=== PATIENT | female | born 2000 | race Two or more races ===

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

== ENCOUNTER 2019-08-14 00:24 | Emergency (ER) | payer OTHER ==
[~2019-08-14] VITALS: Ht 160 cm; Wt 90.9 kg
[~2019-08-14 00:24] MED LIST changes: +PERM60CR12 TP
[2019-08-14 00:52] VITALS: BP 153/94
[2019-08-14] MEDS ORDERED: HYDR453. TP (01:17)
[2019-08-14] MEDS ORDERED: ONDA4TAB12 PO (01:17)
--- NOTE | 2019-08-14 01:19 | PHYS DOC ---
Past Medical History Past Medical History: No Pertinent History Past Surgical History: No Surgical History Smoking Status: Never Smoker Alcohol Use: None Drug Use: None Adult General Chief Complaint Chief Complaint: NAUSEA/VOMITING/[facility] Patient is a 18 year old female who presents with nausea and diarrhea that's been ongoing for several months after she eats certain foods. The patient also states she has a rash on her left elbow that itches sometimes. She states he used to be on her right elbow but then went to her left elbow. The patient also states that one time it was on her knee. This has been ongoing for months to years. Denies fevers or any other complaints. Patient request a work note. Complete ROS were reviewed and found to be within normal limits, except as documented in the [facility] Allergies Allergies Allergies Coded Allergies Type Severity Reaction Last Updated Verified No Known Drug Allergies 02/09/18 No Physical Exam Physical Exam Constitutional: Well developed, well nourished, no acute distress, non-toxic appearance. [] Cardiovascular:Heart rate regular rhythm, no murmur [] Lungs & Thorax: Bilateral breath sounds clear to auscultation [] Neurologic: Alert and oriented X 3, normal motor function, normal sensory function, no focal deficits noted. [] Psychologic: Affect normal, judgement normal, mood normal, the patient has a visitor's name tag on from the ER from yesterday. Current Patient Data Vital Signs Vital Signs Date Time Temp Pulse Resp B/P (MAP) Pulse Ox O2 Delivery O2 Flow Rate FiO2 08/14/19 00:52 98.4 86 14 153/94 (113) 100 Room Air 98.4 EKG EKG [] Radiology/Procedures Radiology/Procedures [] Course & Med Decision Making Course & Med Decision Making Pertinent Labs and Imaging studies reviewed. (See chart for details) Discussed with patient that her symptoms have been ongoing for months and that she needs to see a primary care provider. Discussed with patient that the rash is psoriasis and will put her on hydrocortisone cream. Discussed with patient that as is her concern that she needs to be seen by PCP to be check for Celiac disease as that is not something we check for in ER. Will also prescribe Zofran. Patient's boyfriend asked for patient to be tested for Flu. Discussed with leila kassi and her Boyfriend that she is not have symptoms of Flu. Discussed that she is not running a fever and her symptoms have been ongoing for months. Dragon Disclaimer Dragon Disclaimer This electronic medical record was generated, in whole or in part, using a voice recognition dictation system. Departure Departure Impression: Primary Impression: Psoriasis Additional Impressions: Nausea Diarrhea Disposition: HOME, SELF-CARE Condition: STABLE Referrals: NO PCP (PCP) Patient Instructions: Psoriasis Additional Instructions: Thank you for visiting [facility]. We appreciate you trusting us with your care. If any additional problems come up don't hesitate to return to visit us. Please follow up with your primary care provider so they can plan additional care if needed and know about the problem that you had. If symptoms worsen come back to the Emergency Department. Any concerning symptoms that start such as chest pain, shortness of air, weakness or numbness on one side of the body, running high fevers or any other concerning symptoms return to the ER. Scripts Hydrocortisone (HYDROCORTISONE) 453.6 Gm Cream..g. 1 RAYMOND TP BID, #15 EACH Prov: MINDI CAVANAUGH APRN 08/14/19 Ondansetron (ONDANSETRON ODT) 4 Mg Tab.rapdis 1 TAB PO PRN Q6-8HRS PRN for NAUSEA, #20 TAB Prov: MINDI CAVANAUGH APRN 08/14/19 Problem Qualifiers Additional Impressions: Diarrhea Diarrhea type: unspecified type Qualified Codes: R19.7 - Diarrhea, unspecified MINDI CAVANAUGH APRN Aug 14, 2019 01:19
[2019-08-14] MEDS ORDERED: ONDANSETRON ODT 4 MG TAB.RAPDIS. PO ONE (02:00)
== END 2019-08-14 01:35 | disposition home or self-care (01) ==
LOC: ER 00:24
DX: L40.9 Psoriasis, unspecified (principal); R11.0 Nausea; R19.7 Diarrhea, unspecified
CPT/HCPCS: 99283; Q0162